=== PATIENT | female | born 2000 ===

== ENCOUNTER 2022-03-20 16:04 | Emergency (ER) | payer OTHER ==
[2022-03-20 16:18] VITALS: BP 132/85
== END 2022-03-21 01:20 | disposition left against medical advice (07) ==
LOC: ED 16:04
DX: M54.2 Cervicalgia (principal); Z53.21 Procedure and treatment not carried out due to patient leaving prior to being seen by health care provider; V87.7XXA Person injured in collision between other specified motor vehicles (traffic), initial encounter; Y93.89 Activity, other specified; Y92.488 Other paved roadways as the place of occurrence of the external cause; Y99.8 Other external cause status